=== PATIENT | male | born 1990 ===

== ENCOUNTER 2017-02-13 01:14 | Observation (INO) | payer MEDICAID, OTHER ==
[2017-02-13 01:19] VITALS: BMI 20.3
--- NOTE | 2017-02-13 01:27 | ED PDOC ---
HPI: Psych/Substance Abuse Time Seen by Provider: 02/13/17 01:17 Chief Complaint (Nursing): Substance Abuse Chief Complaint (Provider): Acute agitation ED Caveat: Intoxicated (possible substance abuse), Uncooperative History Per: EMS History/Exam Limitations: intoxication Onset/Duration Of Symptoms: Mins (prior to arrival) Current Symptoms Are (Timing): Still Present Additional Complaint(s): John Butler is a 32 year old male who presents to the emergency department via [facility] for an evaluation after he was found extremely agitated, behaving erratically and jumping on cars. History is limited due to patient's agitated state, however per EMS, patient has history of drug use. PMD: none provided Past Medical History Reviewed: Nursing Documentation, Vital Signs Vital Signs: Last Vital Signs Temp 99.9 F H 02/13/17 01:18 Pulse 78 02/13/17 01:18 Resp 18 02/13/17 01:18 BP 138/89 02/13/17 01:18 Pulse Ox 98 02/13/17 01:18 - Medical History PMH: Denies: Diabetes, Hepatitis, HIV, HTN, Chronic Kidney Disease, Seizures, Sexually Transmitted Disease - Family History Family History: States: No Known Family Hx - Immunization History Hx Tetanus Toxoid Vaccination: No Hx Influenza Vaccination: No Hx Pneumococcal Vaccination: No - Home Medications Home Medications: Ambulatory Orders Medication Instructions Recorded No Known Home Med 08/01/16 - Allergies Allergies/Adverse Reactions: Allergies Allergy/AdvReac Type Severity Reaction Status Date / Time Penicillins Allergy RASH Verified 02/13/17 01:17 Review of Systems Review Of Systems: ROS cannot be obtained secondary to pt's inabilty to answer questions. (agitated and uncooperative) Physical Exam - Reviewed Nursing Documentation Reviewed: Yes Vital Signs Reviewed: Yes - Physical Exam Appears: Positive for: Well, Non-toxic Head Exam: Positive for: ATRAUMATIC, NORMAL INSPECTION, NORMOCEPHALIC Skin: Positive for: Normal Color, Warm, DRY Cardiovascular/Chest: Positive for: Regular Rate, Rhythm Respiratory: Positive for: CNT, Normal Breath Sounds Neurologic/Psych: Positive for: Alert, Other (slightly slurred speech) - Laboratory Results Result Diagrams: 02/13/17 01:55 02/13/17 01:55 - ECG O2 Sat by Pulse Oximetry: 98 (RA) Pulse Ox Interpretation: Normal Medical Decision Making Medical Decision Making: Initial Impression: Acute agitation; possible substance abuse Initial Plan: * Alcohol serum * Labs * Drug screen, urine * Haldol 5mg IM * Ativan 2mg IM * 1:1 OBS * Accucheck * 4 points restraints * Urinalysis * Reevaluation Time: 07:00 --Patient is signed out to Dr. Bonnie May. Pending clinical sobriety and medical stability. Scribe Attestation: Documented by Susanna Bates, acting as a scribe for Trey Danielle MD. Provider Scribe Attestation: All medical record entries made by the Scribe were at my direction and personally dictated by me. I have reviewed the chart and agree that the record accurately reflects my personal performance of the history, physical exam, medical decision making, and the department course for this patient. I have also personally directed, reviewed, and agree with the discharge instructions and disposition. ED OBSERVATION Date of observation admission: 02/13/17 Time of observation admission: 01:20 - Observation admission statement Patient is being placed in observation because:: acute agitated state; possible substance abuse - Goals of Observation Goals of observation are:: Medical stability - Progress Note Progress Note: Time: 02:10 --Patient is resting comfortably and vital signs are stable. Time: 03:40 --Vitals stable. Patient resting comfortably. Time: 03:40 --Vitals stable and patient resting comfortably. Disposition - Clinical Impression Clinical Impression: Unspecified psychosis - Patient ED Disposition Is Patient to be Admitted: Transfer of Care - Disposition Disposition: Transfer of Care Disposition Time: 07:00 Condition: FAIR Patient Signed Over To: Bonnie May
[2017-02-13 02:07] LABS: BASO # 0.1 K/uL (0.0-0.2); BASO % 0.6 % (0.0-2.0); EOS # 0.1 K/uL (0.0-0.7); EOS % 1.6 % (0.0-4.0); HEMOGLOBIN 13.3 g/dL (12.0-18.0); LYMPH # 1.6 K/uL (1.0-4.3); LYMPH % 17.5 % (20.0-40.0); MEAN CELL VOLUME 92.7 fl (80.0-94.0); MEAN CORPUSCULAR HEMOGLOBIN 31.6 pg (27.0-31.0); MEAN PLATELET VOLUME 10.5 fl (7.2-11.7); MONO # 0.6 K/uL (0.0-0.8); MONO % 6.1 % (0.0-10.0); NEUT # 6.9 K/uL (1.8-7.0); NEUT % 74.2 % (50.0-75.0); RBC 4.2 Mil/uL (4.40-5.90); RED CELL DISTRIBUTION WIDTH 12.4 % (11.5-14.5); WHITE BLOOD COUNT 9.3 K/uL (4.8-10.8)
[2017-02-13 02:19] LABS: ALB/GLOB RATIO 1.3 (1.0-2.1); ALBUMIN 4.1 g/dL (3.5-5.0); ALT/SGPT 42 U/L (21-72); AST/SGOT 47 U/L (17-59); BLOOD UREA NITROGEN 16 mg/dl (9-20); CALCIUM 9.4 mg/dL (8.4-10.2); GFR AFRICAN-AMERICAN > 60; GFR NON-AFRICAN AMERICAN > 60
--- NOTE | 2017-02-13 07:26 | ED PDOC ---
- Laboratory Results Result Diagrams: 02/13/17 01:55 02/13/17 01:55 - ECG O2 Sat by Pulse Oximetry: 98 (RA) Pulse Ox Interpretation: Normal Medical Decision Making Medical Decision Making: Time: 07:00 --Patient is signed out by Trey Danielle MD to me, pending clinical sobriety Time: 08:10 --Patient continues to rest comfortably. Vitals remain stable. Time: 09:40 --Patient continues to rest comfortably. Vitals remain stable. Time: 11:10 --Still pending clinical sobriety --Patient continues to rest comfortably. Vitals remain stable. Time: 12:40 --Patient is resting comfortably. Vital signs remain stable. Time: 14:07 --Patient is clinically sober, ambulating, medically stable, and ready for discharge home. denies any psychiatric complaints/suicidial or homicidal ideation. vitals stable for dc. Scribe Attestation: Documented by Kina Velasquez, acting as a scribe for Bonnie May MD Provider Scribe Attestation: All medical record entries made by the Scribe were at my direction and personally dictated by me. I have reviewed the chart and agree that the record accurately reflects my personal performance of the history, physical exam, medical decision making, and the department course for this patient. I have also personally directed, reviewed, and agree with the discharge instructions and disposition. Disposition Counseled Patient/Family Regarding: Diagnosis, Need For Followup - Clinical Impression Clinical Impression: Polysubstance abuse - POA Present On Arrival: None - Disposition Disposition: Routine/Home Disposition Time: 14:07 Condition: IMPROVED
[2017-02-13 12:35] LABS: URINE BILIRUBIN NEGATIVE (NEGATIVE); URINE BLOOD NEGATIVE (NEGATIVE); URINE CLARITY CLEAR (Clear); URINE COLOR YELLOW (YELLOW); URINE GLUCOSE (UA) NEG (Normal); URINE LEUKOCYTE ESTERASE NEG Leu/uL (Negative); URINE NITRATE NEGATIVE (NEGATIVE); URINE PROTEIN NEGATIVE (NEGATIVE)
[2017-02-13 12:50] LABS: BARBITURATES, UR NEGATIVE (NEGATIVE); BENZODIAZEPINES, UR NEGATIVE (NEGATIVE); OPIATES, UR NEGATIVE (NEGATIVE); PHENCYCLIDINE, UR NEGATIVE (NEGATIVE)
[2017-02-13 15:08] VITALS: BP 113/70; PULSE 59; RESP 16; TEMP 97.9
[2017-02-13 16:42] VITALS: O2SAT 98
--- NOTE | 2017-02-13 23:25 | CARD ---
APPROVED REPORT EKG Measurement Heart [id number] <Conclusion> Normal sinus rhythm Rightward axis ST elevation, consider early repolarization, pericarditis, or injury ST & T wave abnormality, consider anterior ischemia Prolonged QT Abnormal ECG
== END 2017-02-13 14:04 | disposition home or self-care (01) ==
LOC: H.ER 01:14 → H.EROBSV 01:20
PROVIDERS: ADMIT Emergency Medicine; ATTEND Emergency Medicine
DX: F19.10 Other psychoactive substance abuse, uncomplicated (principal)
CPT/HCPCS: 36415; 80053; 81003; 82948; 85025; 93005; 96372; 99285; G0378; G0480; J1630; J2060